=== PATIENT | male | born 1985 | race Caucasian/White ===

== ENCOUNTER 2024-11-18 11:35 | Emergency (ER) | payer OTHER, SELFPAY ==
--- OUTSIDE RECORDS SUMMARY | 2024-11-18 11:36 | XMS_ITS | Encounter Summary ---
Author Organization [facility] Address [address] [place] [address] Phone Care Team Providers Care Input Output Clerk Name Role Phone Roosevelt Granados MD Primary Care Provider + Encounter Details Date Type Department Care Team (Late st Contact Info) Description 02/08/2020 Telephone [facility] Oncology [address] [facility] [address] [place] [address] Nails, Shauntori Preeti, RMA Social History Tobacco Use Types Packs/Day Years Used Date Smoking Tobacco: Never Smokeless Tobacco: Never Alcohol Use Standard Drinks/Week Comments Yes 0 (1 standard drink = 0.6 oz pur e alcohol) Sex and Gender Information Value Date Recorded Sex Assigned at Not on file 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
--- OUTSIDE RECORDS SUMMARY | 2024-11-18 11:36 | XMS_ITS | Encounter Summary ---
Author Organization [facility] Address [address] [place] [address] Care Team Providers Care Director Appointment Name Role Phone Roosevelt Granados MD Primary Care Provider [phone] Mariah Guthrie NP Primary Care Provider [phone] Encounter Details Date Type Department Care Team (Late st Contact Info) Description 09/11/2020 [facility] Message [facility] [address] [place] [address] Flattr, [facility] Provider Lab Results Social History Tobacco Use Types Packs/Day Years Used Date Smoking Tobacco: Never Smokeless Tobacco: Never Alcohol Use Standard Drinks/Week Comments Yes 0 (1 standard drink = 0.6 oz pur e alcohol) 1-2 per weekly PHQ-2 Answer Date Recorded PHQ-2 Score 0 08/23/2019 Sex and Gender Information Value Date Recorded Sex Assigned at Not on file Legal Sex Male 8:13 PM CDT Gender Identity Not on file Sexual Orientation Not on file COVID-19 Exposure Response Date Recorded In the last month, have you been in contact with someone who was confirmed or suspected to have Coronavirus / COVID-19? No / Unsure 09/10/2020 9:42 AM TOPOGRAPHICAL SURVEYOR documented as of this encounter Plan of Treatment Not on file documented as of this encounter Visit Diagnoses Not on filedocumented in this encounter Additional Health Concerns Infection Onset Date Last Indicated Resolved Time COVID-19 Rule Out 10/30/2020 10/30/2020 10/31/2020 2:20 PM CDT COVID-19 Rule Out 08/11/2021 08/12/202108/1208/12/2021 8:33 AM TOPOGRAPHICAL SURVEYOR COVID-19 Rule Out 08/12/2021 08/12/2021 08/12/2021 9:19 PM TOPOGRAPHICAL SURVEYOR COVID-19 Rule Out 04/29/2023 04/29/2023 04/29/2023 8:38 AM CDT COVID-19 Rule Out 04/27/2024 04/27/2024 04/27/2024 10:26 AM CDT documented as of this encounter Care Teams Director Appointment Relationship Specialty Start Date End Date Roosevelt Granados MD PCP - General INTERNAL MEDICINE 08/23/19 12/21/21 [place] [address] [address] PCP - General Nurse Practitioner Family 12/22/21 documented as of this encounter
--- OUTSIDE RECORDS SUMMARY | 2024-11-18 11:36 | XMS_ITS | Clinical Summary ---
Author Organization [facility] Address [address] [facility] [place] [address] Care Team Providers Care Pc Technician Name Role Phone Roosevelt Granados MD Primary Care Provider + Allergies No known active allergies Medications multivitamin tabletIndications: Vitamin Deficiency Prevention Active Active Problems Problem Noted Date Diagnosed Date Primary malignant neoplasm of liver 08/12/2015 Surgical History Surgery Date Site/Laterality Comments BIOPSY LIVER 07/15/2015 N/A Family History Medical History Relation Name Comments Lung cancer Paternal Grandfather Family history of lung cancer - (Added by TW Conv) Lung cancer Paternal Grandmother Family history of lung cancer - (Added by TW Conv) Stomach cancer Paternal Grandmother Famil y history of malignant neoplasm of stomach - (Added by TW Conv) Relation Name Status Comments Paternal Grandfather Paternal Grandmother Social History Tobacco Use Types Packs/Day Years Used Date Smoking Tobacco: Never Smokeless Tobacco: Never Alcohol Use Standard Drinks/Week Comments Yes 0 (1 standard drink = 0.6 oz pur e alcohol) Sex and Gender Information Value Date Recorded Sex Assigned at Not on file 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 Gender Identity Not on file Sexual Orientation Not on file Obstetrics History Last Filed Vital Signs Vital Sign Reading Time Taken Comments Blood Pressure 131/83 10/14/2021 12:00 PM CDT Pulse 54 10/14/2021 12:00 PM CDT Temperature 37.1 C (98.8 F) 10/14/2021 12:00 PM CDT Respiratory Rate 20 10/14/2021 12:00 PM CDT Oxygen Saturation 98% 10/14/2021 12:00 PM CDT Inhaled Oxygen Concentration - - Weight 95.8 kg (211 lb 3.2 oz) 10/14/2021 12:00 PM CDT Height 188 cm (6' 2 ) 09/16/2015 3:24 PM HOGSHEAD ROLLER Body Mass Index 27.12 09/16/2015 3:24 PM HOGSHEAD ROLLER Plan of Treatment Not on file Insurance [facility] CHOICE PLUS [facility] Care Teams Pc Technician Relationship Specialty Start Date End Date Roosevelt Granados MD PCP - General 10/05/16
--- OUTSIDE RECORDS SUMMARY | 2024-11-18 11:36 | XMS_ITS | Encounter Summary ---
Author Organization [facility] Address [address] [place] [address] Phone Care Team Providers Care Transition Advisor Name Role Phone Roosevelt Granados MD Primary Care Provider + Encounter Details Date Type Department Care Team (Late st Contact Info) Description 03/28/2018 Telephone [facility] Oncology [address] [facility] [address] [place] [address] Olimpia Lee, [facility] Social History Tobacco Use Types Packs/Day Years Used Date Smoking Tobacco: Never Assessed Sex and Gender Information Value Date Recorded Sex Assigned at Not on file 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
--- OUTSIDE RECORDS SUMMARY | 2024-11-18 11:36 | XMS_ITS ---
Author Organization [facility] Address [address] [facility] [place] [address] Care Team Providers Care Coper Hand Name Role Phone Roosevelt Granados MD Primary Care Provider + Active Problems Problem Noted Date Diagnosed Date Primary malignant neoplasm of liver 08/12/2015 Current Treatment and Therapy Plans No current plan information found. Past Treatment and Therapy Plans No past plan information found. Lifetime Dose Tracking * Chemical Lifetime Dose Automatic Entry Manual Entr y DLP 3,662 mGycm 3,662 mGycm 0 mGycm
--- OUTSIDE RECORDS SUMMARY | 2024-11-18 11:36 | XMS_ITS | Encounter Summary ---
Author Organization [facility] Address [address] [place] [address] Care Team Providers Care Plaster Helper Name Role Phone Roosevelt Granados MD Primary Care Provider + Encounter Details Date Type Department Care Team (Late st Contact Info) Description 09/02/2020 Telephone [facility] [address] [place] [address] Savannha [place], [place] Social History Tobacco Use Types Packs/Day Years Used Date Smoking Tobacco: Never Smokeless Tobacco: Never Alcohol Use Standard Drinks/Week Comments Yes 0 (1 standard drink = 0.6 oz pur e alcohol) Sex and Gender Information Value Date Recorded Sex Assigned at Not on file 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
--- OUTSIDE RECORDS SUMMARY | 2024-11-18 11:36 | XMS_ITS | Referral Summary ---
Author Organization [facility] Address [address] [address] [facility] [place] [address] Care Team Providers Care Special Officer Name Role Phone Roosevelt Granados MD Primary Care Provider + Allergies No known active allergies Medications multivitamin tabletIndications: Vitamin Deficiency Prevention Active Active Problems Problem Noted Date Diagnosed Date Primary malignant neoplasm of liver 08/12/2015 Social History Tobacco Use Types Packs/Day Years Used Date Smoking Tobacco: Never Smokeless Tobacco: Never Alcohol Use Standard Drinks/Week Comments Yes 0 (1 standard drink = 0.6 oz pur e alcohol) Sex and Gender Information Value Date Recorded Sex Assigned at Not on file 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 Gender Identity Not on file Sexual Orientation Not on file Last Filed Vital Signs Vital Sign Reading [...] cm (6' 2 ) 09/16/2015 3:24 PM PANELBOARD OPERATOR Body Mass Index 27.12 09/16/2015 3:24 PM PANELBOARD OPERATOR Plan of Treatment Not on file Insurance [facility] CHOICE PLUS [facility] HMO/PPO Address: [facility] [id number] [place] [address] [facility] H[facility]/PPO Address: [place] [phone] [facility] HMO/PPO Address: [address] [place], [place] [phone] Care Teams Special Officer Relationship Specialty Start Date End Date Roosevelt Granados MD PCP - General 10/05/16
--- OUTSIDE RECORDS SUMMARY | 2024-11-18 11:37 | XMS_ITS | Clinical Summary ---
Author Organization [facility] Address [facility] [place] [address] Care Team Providers Care Grain Grader Name Role Phone Mariah Guthrie NP Primary Care Provider [phone] Allergies No known active allergies Medications Multiple Vitamin (MULTI-VITAMIN) tablet Take 1 tablet by mouth daily. Active escitalopram (LEXAPRO) 5 MG tabletIndicatio ns:Anxiety Take 1 tablet (5 mg total) by mouth in the morning. 30 tablet 2 2 Active Additional Information Patient not taking.Reported on 04/29/2023 azithromycin (ZITHROMAX) 250 MG tabletIndicatio ns:Cough TAKE 2 TABS PO DAY 1 THEN 1 TABLET DAILY 6 tablet 2 Active Additional Information Patient not taking.Reported on 04/29/2023 benzonatate (TESSALON PERLES) 100 MG capsuleIndicati ons:Bronchitis Take 1 capsule (100 mg total) by mouth 3 (three) times daily as needed for Cough. 40 capsule 3 Active Additional Information Patient not taking.Reported on 04/27/2024 Active Problems Problem Noted Date Diagnosed Date Overweight (BMI 25.0-29.9) 12/22/2021 Anxiety 12/22/2021 Nausea 03/14/2021 Primary hepatocellular carcinoma of liver ([facility] HHS/HCC) 07/31/2015 Overview (08/23/2019): Transitioned From: Liver mass GERD (gastroesophageal reflux disease) 5 Resolved Problems Problem Noted Date Diagnosed Date Resolved Date Upper respiratory tract infe ction, unspecified type 08/11/2021 12/22/2021 Cough 08/11/2021 12/22/2021 Hypokalemia 07/30/2015 10/30/2020 Back pain, acute 07/30/2015 10/30/2020 Hospitalization within last 30 days 07/03/2015 10/30/2020 Encounter for preventive health examination 06/17/2015 04/12/2020 Immunizations Immunization Administration Dates Next Due Meningococcal 03/21/2004 Meningococcal (Menomune) 03/21/2004 Tdap (Generic) 01/23/2018 Family History Medical History Relation Comments None Father None Mother Cancer Paternal Grandmother stomach Relation Status Comments Father Alive Mother Alive Paternal Grandmother Social History Tobacco Use Types Packs/Day Years Used Date Smoking Tobacco: Never Smokeless Tobacco: Former Chew Quit: 12/15/2021 Tobacco Cessation:Counseling Given: Yes Alcohol Use Standard Drinks/Week Comments Yes 1 (1 standard drink = 0.6 oz pur e alcohol) 1-2 per weekly PHQ-2 Answer Date Recorded Patient Health Questionnaire-2 Score 0 04/29/2023 Sex and Gender Information Value Date Recorded Sex Assigned at Not on file Legal Sex Male 8:13 PM CDT Gender Identity Not on file Sexual Orientation Not on file Last Filed Vital Signs Vital Sign Reading Time Taken Comments Blood Pressure 139/91 04/27/2024 9:53 AM CDT Pulse 77 04/27/2024 9:53 AM CDT Temperature 36.7 C (98.1 F) 04/27/2024 9:53 AM CDT Respiratory Rate 18 04/27/2024 9:53 AM CDT Oxygen Saturation 95% 04/27/2024 9:53 AM CDT Inhaled Oxygen Concentration - - Weight 98.5 kg (217 lb 3.2 oz) 04/27/2024 9:53 A M CDT Height 188 cm (6' 2 ) 04/27/2024 9:53 AM CDT Body Mass Index 27.89 04/27/2024 9:53 AM CDT Plan of Treatment Health Maintenance Due Date Last Done Comments Annual Physical 1988 Hepatitis C 2003 Hepatitis B Vaccines (1 of 3 - 19+ 3-dose series) 2004 COVID-19 Vaccine (2023-2 5 season) 2024 03/04/2021 PHQ-2 (Physician [place]) 08/02/2024 04/29/2023 DTaP, Tdap and Td Vaccines ( 2 - Td or Tdap) 01/24/2028 01/23/2018 Meningococcal Vaccine Aged Out 03/21/2004 , 03/21/2004 No longer eligible based on patient's age to complete this topic HPV Vaccines Aged Out No longer eligi ble based on patient's age to complete this topic Meningococcal B Vaccine Aged Out No l onger eligible based on patient's age to complete this topic Pneumococcal Vaccine: Pediatrics (0 to 5 Years) and At-Risk Patients (6 to 49 Years) Aged Out No longer eligible b ased on patient's age to complete this topic RSV Immunizations Under 20 Months Aged Out No longer eligible b ased on patient's age to complete this topic Insurance Care Teams Grain Grader Relationship Specialty [place] [address] [place] [address] PCP - General Nurse Practitioner Family 12/22/21
--- OUTSIDE RECORDS SUMMARY | 2024-11-18 11:37 | XMS_ITS | Encounter Summary ---
Author Organization [facility] Address [address] [place] [address] Care Team Providers Care Orthopedic Surgeon Name Role Phone Roosevelt Granados MD Primary Care Provider [phone] Mariah Guthrie NP Primary Care Provider [phone] Encounter Details Date Type Department Care Team (Late st Contact Info) Description 09/12/2020 [place] Message [facility] [address] [place] [address] [employer], [facility] Provider Lab Results Social History Tobacco Use [...] COVID-19? No / Unsure 09/10/2020 9:42 AM VOCATIONAL EDUCATION TEACHER documented as of this encounter Plan of Treatment Not on file documented as of this encounter Visit Diagnoses Not on filedocumented in this encounter Additional Health Concerns Infection Onset Date Last Indicated Resolved Time COVID-19 Rule Out 10/30/2020 10/30/2020 10/31/2020 2:20 PM CDT COVID-19 Rule Out 08/11/2021 08/12/202108/1208/12/2021 8:33 AM VOCATIONAL EDUCATION TEACHER COVID-19 Rule Out 08/12/2021 08/12/2021 08/12/2021 9:19 PM VOCATIONAL EDUCATION TEACHER COVID-19 Rule Out 04/29/2023 04/29/2023 04/29/2023 8:38 AM CDT COVID-19 Rule Out 04/27/2024 04/27/2024 04/27/2024 10:26 AM CDT documented as of this encounter Care Teams Orthopedic Surgeon Relationship Specialty Start Date End Date Roosevelt Granados MD PCP - General INTERNAL MEDICINE 08/23/19 12/21/21 [place] [address] [address] PCP - General Nurse Practitioner Family 12/22/21 documented as of this encounter
[2024-11-18 12:13] VITALS: BP 136/91; PULSE 74; RESP 18; TEMP 36.3; O2SAT 98
--- NOTE | 2024-11-18 12:48 | ED.URI ---
HPI - URI/Sore Throat General Chief Complaint: Upper Respiratory Infection Stated Complaint: cold Source: patient Mode of arrival: ambulatory Limitations: no limitations History of Present Illness HPI Narrative: 39-year-old male presents to [facility] with complaints of sore throat, body aches, fatigue and nasal congestion for the past 2 days. Patient has been taking [id number] Motrin, zinc, wash in water with little relief. Patient reports his currently have bilateral ear infection and his child had a GI bug. Patient rates his throat pain current 5/10; patient is refusing swabs at this time. Patient reports that he feels like the pain improves as the day goes on. Patient is nonsmoker. Patient denies recent travel. MD elicited complaint: sore throat and nasal congestion Onset (ago): day(s) (2) Severity: mild Able to tolerate fluids by mouth: Yes Exacerbating factors: swallowing Treatments prior to arrival: ibuprofen Related Data Allergies Allergy/AdvReac Type Severity Reaction Status Date / Time No Known Allergies Allergy Verified 11/18/24 12:20 Review of Systems Constitutional: Constitutional: Reports chills, Reports fatigue, Denies fever(s) and Denies weakness ENT: Denies vertigo, Denies dizziness, Denies epistaxis, Denies nasal congestion and Reports sore throat Respiratory: Respiratory: Denies cough, Denies dyspnea and Denies wheezing Gastrointestinal: Gastrointestinal: Denies diarrhea, Denies nausea and Denies vomiting Integumentary/Breasts: Skin/Breast: Denies pruritus, Denies erythema and Denies rash Neurologic: Denies vertigo and Denies dizziness Exam Const: General: healthy appearing and no acute distress Nutritional Appearance: well nourished Orientation/consciousness: patient oriented x3 Limitations: no limitations HENMT: Head: normal to inspection Ears: external ears normal and TM's normal bilaterally Face/Nose/Sinus: Normal external nose present and Normal nares present Face and sinus: normal facial exam Mouth: Yes Normal oral and palatal mucosa present, Yes lip normal and Yes moist mucous membranes Throat: uvula midline Other: Mild erythema noted to posterior pharynx. Eyes: Conjunctivae: conjunctivae normal Neck: Neck: normal visual inspection Resp: Effort & Inspection: normal respiratory effort Auscultation: clear to auscultation bilaterally, no crackles, no rales and no rhonchi Cardio: Rate: regular rate Rhythm: abnormal rhythm Heart sounds: no murmurs Skin: General skin exam: normal color Rashes: no rashes Neuro: General: patient oriented x3 and moves all extremities Speech: normal speech Psych: Mental Status: mental status grossly normal Affect: normal affect Attitude: cooperative Course Course Level of Care: Express Care Visit Vital Signs Vital signs: Vital Signs Temperature 36.3 C L 11/18/24 12:13 Pulse Rate 74 11/18/24 12:13 Respiratory Rate 18 11/18/24 12:13 Blood Pressure 136/91 H 11/18/24 12:13 Pulse Oximetry 98 11/18/24 12:13 Oxygen Delivery Room Air 11/18/24 12:13 Temperature 36.3 C L 11/18/24 12:13 Pulse Rate 74 11/18/24 12:13 Respiratory Rate 18 11/18/24 12:13 Blood Pressure 136/91 H 11/18/24 12:13 Pulse Oximetry 98 11/18/24 12:13 Oxygen Delivery Room Air 11/18/24 12:13 MDM - URI/Sore Throat Differential Diagnosis Differential diagnosis: Likely upper respiratory infection and viral infection Critical Care Time Critical Care Time Critical Care Time: No Discharge Plan Discharge Clinical Impression: Viral infection Pharyngitis Qualifiers: Pharyngitis/tonsillitis etiology: unspecified etiology Qualified Code(s): J02.9 - Acute pharyngitis, unspecified Patient Disposition: Home Condition: Stable Instructions: Viral Syndrome (ED) Additional Instructions: Rest Increase fluids take Claritin daily Taking Medrol dosepak as prescribed Follow-up with primary care provider if symptoms are not improved proceed to the emergency room symptoms worsen Patient Language: Swedish Prescriptions: New methylprednisolone [Medrol (Ady)] 4 mg tablets,dose pack See Rx Instructions .ROUTE .COMPLEX Qty: 21 0RF Rx Instructions: orally per package directions loratadine [Claritin] 10 mg tablet 10 mg PO DAILY Qty: 30 0RF Follow-up/Referrals: PHYSICIAN,MACHINE SETTER AND REPAIRER [Primary Care Provider] - Time of Disposition: 13:01
== END 2024-11-18 13:02 | disposition home or self-care (01) ==
PROVIDERS: Emergency Provider Nurse Practitioner Family
DX: B34.9 Viral infection, unspecified (principal); J02.9 Acute pharyngitis, unspecified
CPT/HCPCS: 99203; G0463